=== PATIENT | female | born 1995 | race Caucasian/White ===

== ENCOUNTER 2017-02-15 09:48 | Inpatient (IN) ==
[2017-02-15] MEDS ORDERED: PITOCIN 30 UNITS/LR 30 UNITS/500 ML IV.SOLN IV SCH (19:54)
[2017-02-15] MEDS ORDERED: PEPCID PO PRN (19:54)
[2017-02-15] MEDS ORDERED: KEFZOL 1 GM/D5W 1 GM/50 ML IVPB IV PRN (19:54)
[2017-02-15] MEDS ORDERED: PEPCID IV PRN (19:54)
[2017-02-15] MEDS ORDERED: STADOL IV PRN ×3 (19:54)
[2017-02-15] MEDS ORDERED: TYLENOL PO PRN (19:54)
[2017-02-15] MEDS ORDERED: BRETHINE SUBQ PRN (19:54)
[2017-02-15] MEDS ORDERED: LR 1,000 ML IV ONE (19:54)
[2017-02-15] MEDS ORDERED: ZOFRAN IV PRN (19:54)
[2017-02-15] MEDS ORDERED: AMBIEN PO PRN (19:54)
[2017-02-15 21:31] LABS: UR AMPHETAMINES QUAL NONE DETECTED (NONE DETECT); UR BARBITUATES QUAL NONE DETECTED (NONE DETECT); UR BENZODIAZEPIN QUAL NONE DETECTED (NONE DETECT); UR CANNABINOIDS QUAL NONE DETECTED (NONE DETECT); UR COCAINE QUAL NONE DETECTED (NONE DETECT); UR MDMA QUAL NONE DETECTED (NONE DETECT); UR METHADONE QUAL NONE DETECTED (NONE DETECT); UR METHAMPHETAMINE QUAL NONE DETECTED (NONE DETECT); UR OPIATES QUAL NONE DETECTED (NONE DETECT); UR OXYCODONE QUAL NONE DETECTED (NONE DETECT); UR PCP QUAL NONE DETECTED (NONE DETECT); UR TCA QUAL NONE DETECTED (NONE DETECT)
[2017-02-15 21:32] LABS: BASO% 0.2 % (0.0-0.8); EOS# 0.05 X1000 (0.0-0.7); EOS% 0.6 % (0.0-10.0); HEMOGLOBIN 11.7 g/dL (12.0-16.0); IMM GRAN# 0.09 X1000 (0.0-0.04); LYMPH# 1.84 X1000 (1.2-3.4); LYMPH% 20.8 % (20.5-51.1); MANUAL DIFF NEEDED? YES; MCH 26.2 PG (27-31); MCHC 32.5 g/dL (33-37); MCV 80.7 FL (81-99); MONO# 0.77 X1000 (0.11-0.59); MONO% 8.7 % (1.7-9.3); MPV 11.3 FL (7.4-10.4); NEUT% 68.7 % (42.2-75.2); PLT 182 X1000 (130-400); RBC 4.46 XMIL (4.2-5.4)
[2017-02-15 21:51] LABS: LYMPHS 23 % (21-51); MONO 5 % (1-9)
[2017-02-15 21:52] LABS: LARGE PLATELETS OCCASIONAL
[2017-02-15] MEDS ORDERED: CYTOTEC PO ONE (23:00)
[2017-02-16] MEDS: CYTOTEC PO SCH ×2 (03:23→17:10)
[2017-02-16] MEDS ORDERED: FENTANYL-BUPIV-NS 2 MCG-0.1% 200 ML EPIDURAL PRN (08:39)
[2017-02-16] MEDS ORDERED: NAROPIN 0.2% ONE (15:14)
[2017-02-16] MEDS ORDERED: MINERAL OIL TOP ONE (15:24)
[2017-02-16] MEDS ORDERED: XYLOCAINE-MPF 1% INJ ONE (15:25)
[2017-02-16] MEDS ORDERED: PITOCIN 20 UNITS/LR 20 UNITS/1,000 ML IV.SOLN ONE (16:43)
--- NOTE | 2017-02-16 16:43 | OPERATIVE NOTE ---
PROCEDURE DATE: 02/16/2017 PREOPERATIVE DIAGNOSIS: Intrauterine at 39-1/2 weeks. Elective induction of labor. POST DELIVERY DIAGNOSES: Intrauterine at 39-1/2 weeks. Elective induction of labor. Nuchal cord without compression. PROCEDURE: Vaginal delivery. PHYSICIAN: Hermann Catalan MD ANESTHESIA: Epidural with DrgM FINDINGS: Viable female infant, 6 pounds, 15 ounces. Cord 3 vessels. Placenta spontaneous, intact. No lacerations or tears. Counts correct. DESCRIPTION: Ms. Giron is a 21-year-old 2, para 1, at 39 and 3 days, who presented last night. She received Cytotec and this morning she was started on Pitocin. She was artificially ruptured. Received epidural anesthesia. Made steady progression throughout the day, becoming complete at approximately 3:15. Soon after began pushing and soon after that crowned at which point the bed was broken down, and with continued pushing, she delivered a viable female , occiput anterior, over an intact perineum. Nuchal cord x 2 reduced without difficulty. The infant was then delivered completely and placed on mother's abdomen. Cord doubly clamped and cut. Care of the taken over by nursery personnel. Cord blood obtained, 3 vessels noted. Then gentle traction resulted in delivery of the placenta after approximately 3 minutes. It was inspected, found to be intact and then discarded. Inspection of the vagina and perineum did not reveal any lacerations or tears. Vaginal sweep did not reveal any formed material clots. All counts were correct. Estimated blood loss 100 mL. Expect routine . cc: Hermann Catalan MD
[2017-02-16] MEDS ORDERED: CYTOTEC PO PRN (16:55)
[2017-02-16] MEDS ORDERED: PITOCIN IM PRN (16:55)
[2017-02-16] MEDS ORDERED: BENADRYL PO PRN (16:55)
[2017-02-16] MEDS ORDERED: MINERAL OIL PO PRN (16:55)
[2017-02-16] MEDS ORDERED: PITOCIN 30 UNITS/LR 30 UNITS/500 ML IV.SOLN IV ONE (16:55)
[2017-02-16] MEDS ORDERED: M-M-R II VACCINE SUBQ ONE (16:55)
[2017-02-16] MEDS ORDERED: BENADRYL IV PRN (16:55)
[2017-02-16] MEDS ORDERED: NORCO-5 PO PRN (16:55)
[2017-02-16] MEDS ORDERED: PITOCIN 20 UNITS/LR 20 UNITS/1,000 ML IV.SOLN IV SCH (16:55)
[2017-02-16] MEDS ORDERED: BOOSTRIX VACCINE IM ONE (16:55)
[2017-02-16] MEDS ORDERED: XYLOCAINE-MPF 1% INJ PRN (16:55)
[2017-02-16] MEDS ORDERED: PERI MEDS (DERMOPLAST/NUPERCAINAL/TUCKS) MISC PRN (16:55)
[2017-02-16] MEDS ORDERED: HYDROXYZINE PO PRN (16:55)
[2017-02-16] MEDS ORDERED: HYDROXYZINE IM PRN (16:55)
[2017-02-16] MEDS: MOTRIN PO PRN (17:15)
[2017-02-16] MEDS: NORCO-10 PO PRN (17:16)
[2017-02-16] MEDS: PERICOLACE PO SCH (20:23)
[2017-02-16] MEDS: AMBIEN PO PRN (22:10)
[2017-02-17] MEDS: MOTRIN PO PRN ×2 (04:35→17:45)
[2017-02-17] MEDS: NORCO-10 PO PRN ×4 (04:36→21:28)
[2017-02-17 05:49] LABS: BASO% 0.1 % (0.0-0.8); EOS# 0.05 X1000 (0.0-0.7); EOS% 0.6 % (0.0-10.0); HEMATOCRIT 34.3 % (37.0-47.0); HEMOGLOBIN 10.6 g/dL (12.0-16.0); IMM GRAN# 0.04 X1000 (0.0-0.04); IMM GRAN% 0.5 % (0.0-0.5); LYMPH% 23.9 % (20.5-51.1); MANUAL DIFF NEEDED? YES; MCH 25.5 PG (27-31); MCHC 30.9 g/dL (33-37); MCV 82.7 FL (81-99); MONO# 0.63 X1000 (0.11-0.59); MONO% 7.9 % (1.7-9.3); MPV 11.1 FL (7.4-10.4); PLT 151 X1000 (130-400); RBC 4.15 XMIL (4.2-5.4)
[2017-02-17 06:28] LABS: BANDS 3 % (0-1); EOS 1 % (1-10); LYMPHS 18 % (21-51); MONO 2 % (1-9)
[2017-02-17] MEDS: HEMOCYTE PLUS CAPSULE PO SCH (09:22)
[2017-02-17] MEDS: PERICOLACE PO SCH (20:40)
[2017-02-17] MEDS ORDERED: EPIFOAM FOAM TOP PRN (20:48)
[2017-02-17] MEDS: AMBIEN PO PRN (21:28)
[2017-02-18] MEDS: NORCO-10 PO PRN ×2 (03:10→08:40)
[2017-02-18] MEDS: MOTRIN PO PRN (03:10)
[2017-02-18 07:48] VITALS: BP 109/54
[2017-02-18] MEDS: HEMOCYTE PLUS CAPSULE PO SCH (08:42)
[2017-02-18] MEDS ORDERED: DERMOPLAST SPRAY TOP PRN (08:53)
== END 2017-02-18 11:55 | disposition home or self-care (01) ==
LOC: P.LD 19:52 → P.WC 02-16 20:48
PROVIDERS: ADMIT Obstetrics & Gynecology; ATTEND Obstetrics & Gynecology